=== PATIENT | female | born 1990 | race African-American/Black ===

== ENCOUNTER 2018-07-26 16:58 | Inpatient (IN) | payer OTHER ==
[~2018-07-26] VITALS: Ht 152.4 cm; Wt 141.5 kg
--- NOTE | ~2018-07-26 | O ---
[facility] [place] [address] OPERATIVE REPORT Name: TRUDI MARK Gabrielle Room #: 454-P [facility] IN M.R.#: [id number] Admission: 07/26/18 Attend Phys: Cooper Montano MD Discharge: Date of : 89 Report #: [id number] THIS REPORT FOR: //name// CC: Cooper Montano [facility] physician/PCP Lam Malin PREOPERATIVE DIAGNOSES: 1. Left ankle bimalleolar equivalent fracture. 2. Syndesmotic rupture. POSTOPERATIVE DIAGNOSES: 1. Left ankle bimalleolar equivalent fracture. 2. Syndesmotic rupture with the distal fibula fracture noted to be at least 4 weeks out considering how much scar tissue was present and some bone healing taking place. The same with the medial clear space with a significantly widened gap, significant scar tissue was found. It took a pretty much to remove all the soft tissue around the ankle to mobilize the talus. ANESTHESIA: General with leg block; however, leg block anesthesia maybe did not take, so we did a local block as well with 20 mL of 0.5% ropivacaine. TOURNIQUET: Thigh, 300. DESCRIPTION OF PROCEDURE: The patient was transported to the operating room and placed on the operating table in supine position. The local block was given before. General anesthesia was administered. The left lower extremity was prepped and draped in the usual sterile manner. Attention was directed to the left ankle. An attempted manipulation was done under the C-arm and no movement of the ankle joint was noted, that was again 0 movement of the ankle joint was noted, could not reproduce the talus underneath the medial malleolus, not even a mm. Attention was directed to the lateral aspect of the ankle where an incision was made approximately 10 cm in length. Incision was deepened via sharp and blunt dissection, being careful to retract all vital structures. It was carried down to the distal fibula, which was noted to have significant amount of scar tissue around it and shortened approximately 1-2 cm. I dissected free the soft tissue around the fibula, so I could see the fracture site completely. It was noted there was some healing of the fracture at the margins of it and a significant amount of soft tissue in the area, so I used a rongeur and a pituitary to clamp the fracture fragment to loosen up the fragment. The fragment still was unable to move because the scar tissue in the distal aspect of the fibula that was already showing signs of healing and scarring in that position, so I released the distal fibular fragment as much as [address] [address] OPERATIVE REPORT Name: TRUDI MARK Gabrielle Room #: 454-P [facility] IN M.R.#: [id number] Admission: 07/26/18 Attend Phys: Cooper Montano MD Discharge: Date of : 89 Report #: [id number], so I can move it distally. The proximal fibular fragment also was scarred, so I released that and the syndesmosis completely, so I could close down the syndesmosis. The scar tissue was preventing closing down of the syndesmosis. Then, a second incision was made over the medial clear space where I opened it up approximately 3 cm and went down the clear space and cleaned out all soft tissue in the area, this took about 20 minutes to clean out completely and to get the talus mobile, taken also scar tissue off the dorsal clear space as well. I was able to mobilize the talus and moved it little gently with time and got complete alignment noted of the talus into the mortise and I was able to get the fibula out to length and I put a lag screw across the fibular fragment and I was able to put a distal fibular plate on the fibula using a [employer] plate. This showed excellent alignment of the fibula and with good length. Then, I used the periarticular point of reduction clamps to reduce the syndesmosis completely and used syndesmotic screws across the tibia and fibula. I used 3 screws because I knew there was a significant amount of tissue membrane wanting to pull the ankle out with time and I was also afraid that her noncompliance would be an issue. I do believe the patient probably had this ankle fracture for at least 3-5 weeks, maybe more and has been walking quite a bit. So I wanted to make sure it was very strong ORIF, so she do walk early, we could protect her ankle joint and keep it in good alignment. Excellent alignment was noted postoperatively. I cleaned out the ankle joint again with the lavage and then closed the wounds with 0 Vicryl for deep tissues, 3-0 Vicryl for subcutaneous tissue and then 2-0 nylon for approximately the skin using a running baseball stitch for both wounds. It was dressed with Xeroform, fluffs, Junior, and put in a posterior sugar tong splint. I have a contact the hospitalist to talk about this patient to make sure she has adequate care postoperatively. I understand she does not have insurance and worried about her ability to take care of herself as well. [facility] [address] [place] [address] OPERATIVE REPORT Name: MARK,TRUDI Anthony Room #: 454-P [facility] IN .R.#: [id number] Admission: 07/26/18 Attend Phys: Cooper Montano MD Discharge: Date of : 89 Report #: [id number] Tourniquet was released and good hyperemic response to digits 1 through 5, moist and pink. By: 1537 1710 Lam Malin DPM /bella
[2018-07-26 17:07] VITALS: BP 187/101
[2018-07-26 18:52] LABS: ABSOLUTE NEUTROPHILS 9.2 thou/uL (1.4-8.2); BASOPHILS 0.6 % (0.0-2.0); EOSINOPHILS 1.2 % (0.0-3.0); HEMATOCRIT 39.8 % (37.0-47.0); LYMPHOCYTES 13.7 % (24.0-44.0); MCH 27.4 pg (26.0-34.0); MCHC 32.6 g/dL (28.0-37.0); MONOCYTES 4.1 % (1.0-8.0); PLATELET COUNT 290 thou/uL (150-400); POLYS 80.4 % (36.0-66.0); RBC 4.74 mil/uL (4.20-5.00); RDW 16.4 % (10.5-14.5); WBC 11.4 thou/uL (4.0-11.0)
[2018-07-26 19:00] LABS: ANION GAP 9 mmol/L (7-16); BUN 13 mg/dL (7-18); CALCIUM 9.3 mg/dL (8.5-10.1); CHLORIDE 106 mmol/L (98-107); CO2 25 mmol/L (21-32); CREATININE 0.9 mg/dL (0.6-1.0); GLUCOSE 145 mg/dL (74-106); POTASSIUM 3.7 mmol/L (3.5-5.1); SODIUM 140 mmol/L (136-145)
[2018-07-26 19:10] LABS: ALBUMIN 3.2 g/dL (3.4-5.0); SGOT 31 U/L (15-37); SGPT 43 U/L (30-65); TOTAL BILIRUBIN 0.2 mg/dL (<0.1-1.0); TROPONIN-I <0.06 ng/mL (<0.06)
[2018-07-26 21:54] VITALS: BP 140/97
[2018-07-26 22:25] VITALS: BP 150/84
[2018-07-27 04:12] VITALS: BP 148/85
--- NOTE | 2018-07-27 07:21 | NUR ---
ADMIT PT ADMITTED TO ROOM 454 WITH LEFT ANKLE FRACTURE, PAIN CONTROLLED WITH IV MORPHINE TAKING SPARINGLY, IV INFUSING INTO LAC WITHOUT DIFFICULTY. NPO AT MIDNIGHT PENDING ORIF TODAY.
[2018-07-27 07:24] VITALS: BP 128/77
--- NOTE | 2018-07-27 09:36 | EKG ---
[address] [place] [address] ELECTROCARDIOGRAM REPORT Name: TRUDI MARK Room #: 454-P ADM IN .R.#: [id number] Admission: 07/26/18 Attend Phys: Cooper Montano MD Discharge: Date of : 89 Report #: [id number] THIS REPORT FOR: //name// [facility] ED Test Date: 2018-07-26 Test Time: 18:38:48 Pat Name: TRUDI MARK Department: Room: [facility] Gender: F Die Caster: AM : 1990 Requested By: Saleem Katz Order Number: [id number] MD: Bin Mejias Measurements Intervals Chalmers Rate: 125 P: 72 WV: 128 QRS: 9 QRSD: 86 T: 4 QT: 339 QTc: 489 Interpretive Statements Sinus tachycardia LVH by voltage Borderline T abnormalities, diffuse leads Borderline prolonged QT interval No previous ECG available for comparison Electronically Signed On 07-27-2018 9:36:34 NURSING TEACHER by Bin Mejias [email or web address] <ELECTRONICALLY SIGNED> By: Bin Mejias MD, [facility] 07/27/18 0936 37 37 Bin Mejias MD, FACC /EPI
--- NOTE | 2018-07-27 10:43 | 2DMMODE ---
[place] [address] [facility] [address] 2 D/M-MODE ECHOCARDIOGRAM Name: TRUDI MARK Room #: 454-P [facility] IN .R.#: [id number] Admission: 07/26/18 Attend Phys: Cooper Montano MD Discharge: Date of : 89 Date of Service: 07/27/18 1043 Report #: [id number] THIS REPORT FOR: //name// APPROVED REPORT Study performed: 07/27/2018 09:57:14 EXAM: Comprehensive 2D, Doppler, and color-flow Echocardiogram Patient Location: Bedside Room #: 454 Status: routine BSA: 2.31 HR: 101 bpm BP: 128/77 mmHg Rhythm: Tachycardia Other Information Study Quality: Adequate Indications Pre-Op Hypertension/HDD 2D Dimensions RVDd: 27.24 mm IVSd: 10.25 (7-11mm) LVOT Diam: 20.80 (18-24mm) LVDd: 56.80 mm PWd: 7.44 (7-11mm) Ascending Ao: 27.92 (22-36mm) LVDs: 43.79 (25-40mm) Aortic Root: 24.48 mm Volumes Left Atrial Volume (Systole) Single Plane 4CH: 32.51 mL Single Plane 2CH: 26.50 mL LA ESV Index: 16.00 mL/m2 Aortic Valve AoV Peak Cecil.: 1.42 m/s AO Peak Gr.: 8.09 mmHg LVOT Max P.13 mmHg LVOT Max V: 0.89 m/s DANNY Vmax: 2.11 cm2 Pulmonary Valve PV Peak Cecil.: 1.15 m/s PV Peak Gr.: 5.30 mmHg [facility] [address] [place] [address] 2 D/M-MODE ECHOCARDIOGRAM Name: TRUDI MARK Room #: 454-P [facility] IN ..#: [id number] Admission: 07/26/18 Attend Phys: Cooper Montano MD Discharge: Date of : 89 Date of Service: 07/27/18 1043 Report #: [id number] Left Ventricle Left ventricle is at the upper limits of normal. There is mild global hypokinesis of the left ventricle with mildly more prominent septal hypokinesis. There is normal left ventricular wall thickness. Left ventricular systolic function is mildly decreased. LVEF is 45%. This study is not technically sufficient to allow evaluation of the LV diastolic function. Right Ventricle The right ventricle is normal size. The right ventricular systolic function is normal. Atria The left atrium size is normal. The right atrium size is normal. Aortic Valve The aortic valve is normal in structure. No aortic regurgitation is present. There is no aortic valvular stenosis. Mitral Valve The mitral valve is normal in structure. There is no mitral valve regurgitation noted. No evidence of mitral valve stenosis. Tricuspid Valve The tricuspid valve is normal in structure. There is no tricuspid valve regurgitation noted. Pulmonic Valve The pulmonary valve is normal in structure. There is no pulmonic valvular regurgitation. Great Vessels The aortic root is normal in size. IVC is normal in size and collapses >50% with inspiration. Pericardium There is no pericardial effusion. <Conclusion> Left ventricle is at the upper limits of normal. LVEF is 45%. There is mild global hypokinesis of the left ventricle with mildly more prominent septal hypokinesis. The aortic valve is normal in structure. The mitral valve is normal in structure. [address] [address] 2 D/M-MODE ECHOCARDIOGRAM Name: TRUDI MARK Gabrielle Room #: 454-P [facility] IN .R.#: [id number] Admission: 07/26/18 Attend Phys: Cooper Montano MD Discharge: Date of : 89 Date of Service: 07/27/18 1043 Report #: [id number] The tricuspid valve is normal in structure. The aortic root is normal in size. There is no pericardial effusion. <ELECTRONICALLY SIGNED> By: Leon August MD 07/27/18 1043 1043 1043 Leon August MD /INF
--- NOTE | 2018-07-27 10:58 | NUR ---
RD consult received, not specified. Pt with extreme class III obesity, BMI of 60. + tobacco use. Admitted with ankle fracture, npo for procedure. Chart reviewed, noted elevated glucose of 145. No hx diabetes noted in chart. Suggest fasting BG level and evaluate. Followup in few days to see if pt with interest in diet education/lifestyle modifications to promote wt loss.
--- NOTE | 2018-07-27 11:01 | NUR ---
Pt had a glucose of 145. Extreme class III obesity. No hx diabetes however would recommend fasting BG level and evaluate.
--- NOTE | 2018-07-27 15:10 | O ---
[facility] [place] [address] OPERATIVE REPORT Name: TRUDI MARK Gabrielle Room #: 454-P ADM IN M.R.#: [id number] Admission: 07/26/18 Attend Phys: Cooper Montano MD Discharge: Date of : 89 Report #: [id number] THIS REPORT FOR: //name// CC: Cooper Montano [facility] physician/PCP Lam Malin DATE OF SERVICE: 07/26/2018 PREOPERATIVE DIAGNOSIS: Left ankle fracture with significant displacement. POSTOPERATIVE DIAGNOSIS: Left ankle fracture with significant displacement. PROCEDURE: Closed reduction, left ankle. ANESTHESIA: Done in the ER with Versed and local block, consisting of about 15 mL of 0.5% Marcaine and about 4 mg of Versed. ER was present and the nurse was present for it. DESCRIPTION OF PROCEDURE: The left ankle was prepped with alcohol and then a local block was given right after 2 mg of Versed was given. The leg was dangled over the side of the bed and reduction was attempted. She was still awake, so we gave her 2 more milligrams to completely relax her and I was able to reduce it and put a sugar-tong splint with a soft cast roll. It seemed to reduce nicely. I could feel the pressure off the medial aspect of the ankle. The patient is being prepped for possible surgery on 07/27/2018; this was done on 07/26/2018. <ELECTRONICALLY SIGNED> By: Lam Malin DPM 07/27/18 1510 1226 1246 Lam Malin, SILVINO /nt
--- NOTE | 2018-07-27 15:10 | H ---
[facility] [place] [address] HISTORY AND PHYSICAL Name: TRUDI MARK Room #: 454-P ADM IN M.R.#: [id number] Admission: 07/26/18 Attend Phys: Cooper Montano MD Discharge: Date of : 89 Report #: [id number] THIS REPORT FOR: //name// CC: Cooper Montano [facility] physician/PCP Lam Malin INTRODUCTION: This is a 27-year-old -[place]oven[place] female who fell approximately 10 days ago, fracturing her left ankle. Over the last 4-5 days her pain increased, so she started to come to the ER where she was seen on 07/26/2018 by the ER physician. PAST MEDICAL HISTORY: Really unremarkable. There were concerns of tachycardia in the ER though. MEDICATIONS: She is taking no medications. ALLERGIES: No known drug allergies. SOCIAL HISTORY: She is an every day smoker. No use of recreational drugs, alcohol occasionally. She says she drinks up to half a pint of vodka every other day. FAMILY HISTORY: Noncontributory. PREVIOUS SURGERIES: Reviewed. REVIEW OF SYSTEMS: Noncontributory in the chart. PHYSICAL EXAMINATION: GENERAL: Well-developed, well-nourished -[place]ovenian female, in no acute distress. Was being worked up by the hospitalist and particularly the tachycardia being worked up. LUNGS: Clear to auscultation without rales, rhonchi or wheezing. ABDOMEN: Nontender, nondistended, but she is obese. EXTREMITIES: Digits are moist and pink. She is neurologically intact bilaterally with neurovascular status intact bilaterally including the left ankle. She does have a deformity noted in the ankle, she has a slight area of necrosis on the very distal aspect of the medial malleolus and after looking at the x-rays it is because of the significant mortise displacement of a left ankle fracture. There is distal fibular fracture about the ankle joint and a significant movement of the talus laterally. ASSESSMENT: Left ankle fracture with syndesmotic disruption of the distal ankle fracture of the fibula. [address] [address] HISTORY AND PHYSICAL Name: JASTRUDI Gabrielle Room #: 454-P [facility] IN ..#: [id number] Admission: 07/26/18 Attend Phys: Cooper Montano MD Discharge: Date of : 89 Report #: [id number] PLAN: The patient will undergo ORIF of the left ankle after she is cleared by Cardiology. In the ER, we decided to do a closed reduction of it. Since it has been that way for quite a while, we are worried about any problem with the soft tissue envelope, so I wanted to reduce it and make a nice pressure free ankle joint. This was done with Versed and a local ankle block consisting of 15 mL of 0.5% Marcaine. It appeared to reduce nicely in the ER. We splinted with a sugar tong and posterior splint. I talked to the patient at length about the possible surgery and possible complications, such as chronic pain, chronic edema, nonunion, delayed union, soft tissue infection, bone infection, hardware failure, and posttraumatic arthritis. Of course it has been now for quite some time, so it might be more difficult to reduce. <ELECTRONICALLY SIGNED> By: Lam Malin DPM 07/27/18 1510 1224 1241 Lam Malin DPM /nt
[2018-07-27 16:50] VITALS: BP 150/102
--- NOTE | 2018-07-27 17:51 | NUR ---
PT STABLE THROUGHOUT SHIFT, PT HAD L ANKLE ORIF WHICH SHE TOLERATED WELL. PT RESTING COMFORTABLY, C/O PAIN WHICH WAS ADDRESSED WITH MEDICATION.
[2018-07-28 04:07] VITALS: BP 121/57
[2018-07-28 08:00] VITALS: BP 145/91
--- NOTE | 2018-07-28 08:35 | NUR ---
PROGRESS PT PAIN CONTROLLED WITH IV MORPHINE TAKING Q4HRS PRN. UP WITH SBA PIVOTS TO COMMODE WITHOUT DIFFICULTY. IVF'S INFUSING ORDERED, SPLINT TO LEFT ANKLE IN PLACE BRISK CAP REFILL SENSATION INTACT ABLE TO WIGGLE TOES ON COMMAND. TO WORK WITH PT/OT THIS SHIFT POSSIBLE DC HOME LATER TODAY OR TOMORROW.
[2018-07-28] MEDS ORDERED: NORCO 5-325 TA1 EACH PO (11:28)
[2018-07-28 13:47] VITALS: BP 145/91
--- NOTE | 2018-07-28 14:10 | NUR ---
PT ADMITTED RELATED TO LEFT ANKLE FRACTURE S/P ORIF. CM REVIEWED CHART AND SPOKE WITH CARE TEAM. CM MET WITH PT AT BEDSIDE THIS DAY. PT IS A&O X4. CM ROLE INTRODUCED. 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 PT INDICATED SHE HAD TAKEN A LEAVE FROM WORK AFTER HER FW AND IS NO NO LONGER EMPLOYED. PT INDICATED SHE LIVES IN A HOUSE WITH HER MOTHER AND GRANDMOTHER WITH A RAMP TO ENTER AND NO STEPS INSIDE. 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 PT INDICATED THAT SHE PLANS TO RETURN HOME ONCE MEDICALLY STABLE. PT INDICATED SHE WILL CONTINUE TO USE HER GRANDMOTHERS EQUIPTMENT UPON DC. PT SEES DR. SAYDA CARVER IN [facility]. CM INDICATED THAT [facility] [[email or web address] WOULD VISIT WITH PT AND SEE IF SHE WERE ELEGIABLE FOR ANY FININCIAL ASSISTANCE PROGRAMS. H&P MENTIONED SOME EHTO USE, CM ASKED IF PT WAS INTERESTED IN ANY RESOURCES AND SHE INDICATED SHE WASN'T. IT IS ANTICIPATED THAT PT WILL HAVE BONEEDS UPON ANTICPATED DISCHARGE TODAY. CM ABLE TO ASSIST SHOULD ANY NEEDS ARISE.
--- NOTE | 2018-07-28 15:16 | NUR ---
POSTOP DAY #1. PATIENT TOLERATING DIET WELL. UP WITH PHYSICAL THERAPY AND MOVING WELL WITH WALKER. GOOD CAPILLARY REFILL TO LEFT FOOT, FOOT WARM. MEDICATED WITH HYDROCODONE 10 MG FOR PAIN AND HELPFUL. PATIENT STATED SHE FELT COMFORTABLE GOING HOME. DISMISSED IN STABLE CONDITION AT 1440 VIA WC TO FRONT ENTRANCE AND HOME WITH UNCLE.
== END 2018-07-28 14:53 | disposition home or self-care (01) | DRG 494 ==
LOC: ER 16:58 → EROBS 21:16 → 4W 21:16
PROVIDERS: Emergency Medicine; ADMIT Hospitalist
DX: S82.842A Displaced bimalleolar fracture of left lower leg, initial encounter for closed fracture (principal); I10 Essential (primary) hypertension; W00.0XXA Fall on same level due to ice and snow, initial encounter; R00.0 Tachycardia, unspecified; F17.210 Nicotine dependence, cigarettes, uncomplicated; S93.432A Sprain of tibiofibular ligament of left ankle, initial encounter; Z82.49 Family history of ischemic heart disease and other diseases of the circulatory system; Z79.899 Other long term (current) drug therapy; Y93.89 Activity, other specified; Y92.89 Other specified places as the place of occurrence of the external cause; Y99.8 Other external cause status
CPT/HCPCS: 10045; 50010; 50386; 51741; 55430; 56524; 56525; 56526; 57091; 64039